=== PATIENT | male | born 1940 | race Caucasian/White ===

== ENCOUNTER 2021-07-18 00:25 | Emergency (ER) | payer OTHER ==
[~2021-07-18] VITALS: Ht 172.7 cm; Wt 81.6 kg
[~2021-07-18 00:25] MED LIST: AMLO-489 PO; ASPI325T4 PO; CHOL1TAB42 PO; FENO134C PO; MULT-576 PO; OMEG120017 PO
[2021-07-18] MEDS ORDERED: MORPHINE SULFATE INJECTION 2 MG/ML SYRG IV ONE (01:30)
[2021-07-18] MEDS ORDERED: ONDANSETRON HCL 4 MG/2 ML VIAL IV ONE (01:30)
[2021-07-18 03:56] LABS: BUN/Creatinine Ratio 15.6; Basophils # (auto) 0 10 ^3/uL (0-0.2); Basophils % (auto) 0.4 % (0.0-2.0); Calcium 8.3 mg/dL (8.5-10.1); Eosinophils # (auto) 0.1 10 ^3/uL (0-0.8); Eosinophils % (auto) 0.5 % (0.0-7.0); Hematocrit 46.3 % (41.0-53.0); Hemoglobin 15.7 g/dL (13.5-17.5); Lymphocytes % (auto) 9.6 % (10.0-50.0); Mean Corpuscular Hemoglobin 30.8 pg (28.0-32.0); Mean Corpuscular Volume 90.6 fL (80.0-100.0); Monocytes # (auto) 0.8 10 ^3/uL (0-1.3); Monocytes % (auto) 7.5 % (0.0-12.0); Neutrophils # (auto) 8.4 10 ^3/uL (1.6-8.6); Potassium 3.6 mmol/L (3.5-5.1); Red Blood Cells 5.11 10^6/uL (4.5-5.90); Red Cell Distribution Width 14.9 % (11.8-14.3); White Blood Cell 10.2 10^3/uL (4.4-10.8)
[2021-07-18 03:57] LABS: Urine Bacteria FEW /hpf (None Seen); Urine Blood 3+ /uL (Negative); Urine Mucus FEW (None Seen); Urine Specific Gravity 1.018 (1.001-1.035); Urine WBC 16 /hpf (0 - 3); Urine WBC Clumps PRESENT /hpf (None Seen)
[2021-07-18 06:00] VITALS: BP 141/75
[2021-07-18] MEDS ORDERED: LEVO-28 PO (06:51)
== END 2021-07-18 07:05 | disposition home or self-care (01) ==
LOC: ER 00:25
DX: R31.9 Hematuria, unspecified (principal); N99.89 Other postprocedural complications and disorders of genitourinary system; E78.5 Hyperlipidemia, unspecified; I10 Essential (primary) hypertension; Z20.822 Contact with and (suspected) exposure to COVID-19
CPT/HCPCS: 36415; 51702; 80048; 81001; 85025; 87086; 87426; 96374; 96375; 99284; J2270; J2405

== ENCOUNTER 2021-07-18 23:05 | Emergency (ER) | payer OTHER ==
[~2021-07-18] VITALS: Ht 172.7 cm; Wt 81.6 kg
[~2021-07-18 23:05] MED LIST changes: +LEVO-28 PO
[2021-07-19 05:40] LABS: Urine Bacteria NONE SEEN /hpf (None Seen); Urine Blood 3+ /uL (Negative); Urine Mucus FEW (None Seen); Urine WBC 15 /hpf (0 - 3)
[2021-07-19 07:06] LABS: Basophils % (auto) 0.5 % (0.0-2.0); Eosinophils % (auto) 1.4 % (0.0-7.0); Lymphocytes # (auto) 1.1 10 ^3/uL (0.4-5.4); Lymphocytes % (auto) 14.3 % (10.0-50.0); Monocytes % (auto) 9.7 % (0.0-12.0); Neutrophils # (auto) 5.5 10 ^3/uL (1.6-8.6); Neutrophils % (auto) 74.1 % (37.0-80.0); White Blood Cell 7.4 10^3/uL (4.4-10.8)
[2021-07-19 07:07] LABS: Basophils # (auto) 0 10 ^3/uL (0-0.2); Eosinophils # (auto) 0.1 10 ^3/uL (0-0.8); Hematocrit 39.6 % (41.0-53.0); Hemoglobin 13.5 g/dL (13.5-17.5); Mean Corpuscular Hemoglobin 30.4 pg (28.0-32.0); Mean Corpuscular Volume 89.3 fL (80.0-100.0); Monocytes # (auto) 0.7 10 ^3/uL (0-1.3); Red Blood Cells 4.43 10^6/uL (4.5-5.90)
[2021-07-19] MEDS ORDERED: SODIUM CHLORIDE 0.9% 1,000 ML IV ONE (07:15)
[2021-07-19 07:20] LABS: Calcium 8.6 mg/dL (8.5-10.1); Magnesium 2.4 mg/dL (1.6-2.6); Potassium 3.9 mmol/L (3.5-5.1)
[2021-07-19 07:24] LABS: Bilirubin, Total 0.5 mg/dL (0.2-1.0); Total Protein 6.6 g/dL (6.4-8.2)
[2021-07-19] MEDS ORDERED: cefTRIAXone 1GM/50ML D5W 50 ML IV ONE (07:30)
[2021-07-19 11:39] VITALS: BP 122/66
== END 2021-07-19 12:12 | disposition still patient (30) ==
LOC: ER 23:05
DX: R33.8 Other retention of urine (principal); R31.9 Hematuria, unspecified; I10 Essential (primary) hypertension; Z79.82 Long term (current) use of aspirin; Z79.2 Long term (current) use of antibiotics; Z79.899 Other long term (current) drug therapy
CPT/HCPCS: 36415; 80053; 81001; 83735; 84484; 85025; 96365; 99285; J0696; J7030

== ENCOUNTER 2022-09-22 15:55 | Inpatient (IN) | payer OTHER ==
[~2022-09-22] VITALS: Ht 170.2 cm; Wt 81.0 kg
[2022-09-22 16:52] LABS: Basophils # (auto) 0 10 ^3/uL (0-0.2); Basophils % (auto) 0.4 % (0.0-2.0); Eosinophils # (auto) 0 10 ^3/uL (0-0.8); Eosinophils % (auto) 0.4 % (0.0-7.0); Hematocrit 46.9 % (41.0-53.0); Hemoglobin 15.9 g/dL (13.5-17.5); Lymphocytes # (auto) 0.9 10 ^3/uL (0.4-5.4); Lymphocytes % (auto) 8.5 % (10.0-50.0); Mean Corpuscular Hemoglobin 32.3 pg (28.0-32.0); Mean Corpuscular Hgb Conc. 33.9 g/dL (32.0-36.0); Mean Corpuscular Volume 95.1 fL (80.0-100.0); Monocytes # (auto) 0.6 10 ^3/uL (0-1.3); Monocytes % (auto) 5.6 % (0.0-12.0); Neutrophils # (auto) 9.1 10 ^3/uL (1.6-8.6); Neutrophils % (auto) 85.1 % (37.0-80.0); Red Blood Cells 4.93 10^6/uL (4.5-5.90); Red Cell Distribution Width 14.5 % (11.8-14.3); White Blood Cell 10.7 10^3/uL (4.4-10.8)
[2022-09-22 17:01] LABS: Albumin 4.2 g/dL (3.4-5.0); BUN/Creatinine Ratio 15.7; Calcium 9.8 mg/dL (8.5-10.1)
[2022-09-22 17:04] LABS: Bilirubin, Total 0.9 mg/dL (0.2-1.0); Total Protein 7.5 g/dL (6.4-8.2)
[2022-09-22] MEDS ORDERED: ONDANSETRON HCL 4 MG/2 ML VIAL IV ONE (19:15)
[2022-09-22] MEDS ORDERED: MORPHINE SULFATE INJ 2 MG/ml SYRG IV PRN (20:45)
[2022-09-22] MEDS ORDERED: NITROGLYCERIN 0.4 MG SL TAB SL PRN (20:45)
[2022-09-22] MEDS: SODIUM CHLORIDE 0.9% 1,000 ML IV SCH (21:15)
[2022-09-23] MEDS: ONDANSETRON HCL 4 MG/2 ML VIAL IV PRN ×5 (00:51→23:07)
[2022-09-23] MEDS: MORPHINE SULFATE INJ 2 MG/ml SYRG IV PRN ×5 (00:53→23:07)
[2022-09-23 04:56] LABS: Basophils # (auto) 0.1 10 ^3/uL (0-0.2); Basophils % (auto) 0.5 % (0.0-2.0); Eosinophils # (auto) 0 10 ^3/uL (0-0.8); Eosinophils % (auto) 0.1 % (0.0-7.0); Hematocrit 48.5 % (41.0-53.0); Lymphocytes # (auto) 0.5 10 ^3/uL (0.4-5.4); Lymphocytes % (auto) 4.8 % (10.0-50.0); Mean Corpuscular Hemoglobin 31.4 pg (28.0-32.0); Mean Corpuscular Volume 95.3 fL (80.0-100.0); Monocytes # (auto) 0.5 10 ^3/uL (0-1.3); Monocytes % (auto) 4.2 % (0.0-12.0); Neutrophils # (auto) 9.7 10 ^3/uL (1.6-8.6); Neutrophils % (auto) 90.4 % (37.0-80.0); Red Blood Cells 5.09 10^6/uL (4.5-5.90); Red Cell Distribution Width 14.7 % (11.8-14.3); White Blood Cell 10.8 10^3/uL (4.4-10.8)
[2022-09-23] MEDS: SODIUM CHLORIDE 0.9% 1,000 ML IV SCH (05:09)
[2022-09-23 05:16] LABS: BUN/Creatinine Ratio 14.3; Calcium 9.8 mg/dL (8.5-10.1); Potassium 4.5 mmol/L (3.5-5.1)
[2022-09-23 08:23] LABS: Urine Bacteria NONE SEEN /hpf (None Seen); Urine Blood Negative /uL (Negative); Urine Mucus FEW (None Seen); Urine Specific Gravity 1.026 (1.001-1.035); Urine WBC 1 /hpf (0 - 3)
[2022-09-23] MEDS: ENOXAPARIN SOD 40 MG/0.4 ML SYRINGE SC SCH (11:30)
[2022-09-23] MEDS: D5W/SOD CHL 0.45%/KCL 20MEQ 1,000 ML IV SCH ×2 (11:46→23:10)
[2022-09-23] MEDS ORDERED: GASTROGRAFIN 120 ML SOL ONE (15:30)
[2022-09-23] MEDS ORDERED: MORPHINE SULFATE INJ 2 MG/ml SYRG IV ONE (18:45)
[2022-09-24] MEDS: MORPHINE SULFATE INJ 2 MG/ml SYRG IV PRN ×3 (03:53→20:59)
[2022-09-24] MEDS: ONDANSETRON HCL 4 MG/2 ML VIAL IV PRN ×2 (03:53→20:59)
[2022-09-24 05:00] VITALS: BP 147/86
[2022-09-24 06:03] LABS: Basophils # (auto) 0 10 ^3/uL (0-0.2); Basophils % (auto) 0.1 % (0.0-2.0); Eosinophils # (auto) 0 10 ^3/uL (0-0.8); Eosinophils % (auto) 0.1 % (0.0-7.0); Hematocrit 50.7 % (41.0-53.0); Hemoglobin 16.7 g/dL (13.5-17.5); Lymphocytes # (auto) 0.6 10 ^3/uL (0.4-5.4); Lymphocytes % (auto) 5.5 % (10.0-50.0); Mean Corpuscular Hemoglobin 31.3 pg (28.0-32.0); Mean Corpuscular Volume 94.9 fL (80.0-100.0); Monocytes # (auto) 1.1 10 ^3/uL (0-1.3); Monocytes % (auto) 9.9 % (0.0-12.0); Neutrophils # (auto) 9.2 10 ^3/uL (1.6-8.6); Neutrophils % (auto) 84.4 % (37.0-80.0); Red Blood Cells 5.34 10^6/uL (4.5-5.90); Red Cell Distribution Width 14.8 % (11.8-14.3); White Blood Cell 10.8 10^3/uL (4.4-10.8)
[2022-09-24 06:38] LABS: BUN/Creatinine Ratio 15.9; Calcium 10.1 mg/dL (8.5-10.1)
[2022-09-24 06:40] LABS: Bilirubin, Total 1.1 mg/dL (0.2-1.0); Total Protein 7.5 g/dL (6.4-8.2)
[2022-09-24 06:41] LABS: Potassium 4.9 mmol/L (3.5-5.1)
[2022-09-24 08:55] VITALS: BP 160/100
[2022-09-24] MEDS: ENOXAPARIN SOD 40 MG/0.4 ML SYRINGE SC SCH ×2 (10:04→10:13)
[2022-09-24] MEDS: D5W/SOD CHL 0.45%/KCL 20MEQ 1,000 ML IV SCH ×2 (10:11→20:06)
[2022-09-24] MEDS: hydrALAZINE HCL 20 MG/ML VL IV PRN (10:26)
[2022-09-24 13:19] VITALS: BP 141/92
[2022-09-24 17:21] VITALS: BP 138/90
[2022-09-24 22:00] VITALS: BP 121/74
[2022-09-25] MEDS: MORPHINE SULFATE INJ 2 MG/ml SYRG IV PRN ×4 (01:25→18:22)
[2022-09-25] MEDS: ONDANSETRON HCL 4 MG/2 ML VIAL IV PRN (01:25)
[2022-09-25 05:00] VITALS: BP 177/106
[2022-09-25] MEDS: hydrALAZINE HCL 20 MG/ML VL IV PRN (05:20)
[2022-09-25] MEDS: D5W/SOD CHL 0.45%/KCL 20MEQ 1,000 ML IV SCH ×2 (05:51→12:02)
[2022-09-25 07:34] LABS: Hemoglobin 16.5 g/dL (13.5-17.5); Mean Corpuscular Hemoglobin 31.4 pg (28.0-32.0); Mean Corpuscular Hgb Conc. 32.4 g/dL (32.0-36.0); Mean Corpuscular Volume 97.1 fL (80.0-100.0); Red Blood Cells 5.25 10^6/uL (4.5-5.90); Red Cell Distribution Width 14.7 % (11.8-14.3)
[2022-09-25 07:50] LABS: Basophils % (manual) 0 (0.0-2.0); Blast Cells 0; Eosinophils % (manual) 0 (0-7); Metamyelocytes % 0; Myelocytes % 0; Promyelocytes % 0; Reactive Lymphocytes 0
[2022-09-25 09:00] VITALS: BP 138/87
[2022-09-25] MEDS: ENOXAPARIN SOD 40 MG/0.4 ML SYRINGE SC SCH (09:25)
[2022-09-25 09:35] LABS: Band Neutrophils % (manual) 53; Lymphocytes % (manual) 12 (10.0-50.0); Monocytes % (manual) 15 (0-12)
[2022-09-25 13:00] VITALS: BP 145/94
[2022-09-25 17:00] VITALS: BP 150/100
[2022-09-25 22:12] VITALS: BP 149/93
[2022-09-26] MEDS: ONDANSETRON HCL 4 MG/2 ML VIAL IV PRN ×4 (00:12→20:15)
[2022-09-26] MEDS: MORPHINE SULFATE INJ 2 MG/ml SYRG IV PRN ×4 (00:13→20:15)
[2022-09-26] MEDS: D5W/SOD CHL 0.45%/KCL 20MEQ 1,000 ML IV SCH ×3 (03:47→20:16)
[2022-09-26 05:14] VITALS: BP 156/94
[2022-09-26 08:24] LABS: Hematocrit 45.4 % (41.0-53.0); Hemoglobin 15.4 g/dL (13.5-17.5); Mean Corpuscular Hemoglobin 32.2 pg (28.0-32.0); Mean Corpuscular Volume 94.9 fL (80.0-100.0); Red Blood Cells 4.78 10^6/uL (4.5-5.90); Red Cell Distribution Width 14.8 % (11.8-14.3); White Blood Cell 3.9 10^3/uL (4.4-10.8)
[2022-09-26] MEDS: ENOXAPARIN SOD 40 MG/0.4 ML SYRINGE SC SCH (08:28)
[2022-09-26 08:40] LABS: Basophils % (manual) 0 (0.0-2.0); Blast Cells 0; Eosinophils % (manual) 0 (0-7); Metamyelocytes % 0; Promyelocytes % 0; Reactive Lymphocytes 0
[2022-09-26 09:03] VITALS: BP 158/97
[2022-09-26 09:26] LABS: Band Neutrophils % (manual) 39; Lymphocytes % (manual) 27 (10.0-50.0); Monocytes % (manual) 18 (0-12); Myelocytes % 1
[2022-09-26 13:04] VITALS: BP 152/91
[2022-09-26 17:00] VITALS: BP 158/95
[2022-09-26 22:00] VITALS: BP 137/86
[2022-09-27 04:30] VITALS: BP 157/93
[2022-09-27] MEDS: MORPHINE SULFATE INJ 2 MG/ml SYRG IV PRN ×3 (06:42→21:10)
[2022-09-27] MEDS: ONDANSETRON HCL 4 MG/2 ML VIAL IV PRN ×2 (06:42→21:10)
[2022-09-27 07:01] LABS: Hematocrit 44.3 % (41.0-53.0); Hemoglobin 14.9 g/dL (13.5-17.5); Mean Corpuscular Hemoglobin 31.9 pg (28.0-32.0); Mean Corpuscular Hgb Conc. 33.6 g/dL (32.0-36.0); Mean Corpuscular Volume 94.9 fL (80.0-100.0); Red Blood Cells 4.67 10^6/uL (4.5-5.90); Red Cell Distribution Width 14.4 % (11.8-14.3)
[2022-09-27 07:05] LABS: Basophils % (manual) 0 (0.0-2.0); Blast Cells 0; Metamyelocytes % 0; Promyelocytes % 0; Reactive Lymphocytes 0
[2022-09-27] MEDS: D5W/SOD CHL 0.45%/KCL 20MEQ 1,000 ML IV SCH ×2 (07:08→15:58)
[2022-09-27] MEDS: ENOXAPARIN SOD 40 MG/0.4 ML SYRINGE SC SCH (07:55)
[2022-09-27] MEDS ORDERED: THROAT LOZENGES(CEPASTAT) MT PRN (08:15)
[2022-09-27 09:00] VITALS: BP 164/96
[2022-09-27] MEDS: hydrALAZINE HCL 20 MG/ML VL IV PRN (09:15)
[2022-09-27 09:17] LABS: Band Neutrophils % (manual) 37; Eosinophils % (manual) 2 (0-7); Lymphocytes % (manual) 21 (10.0-50.0); Monocytes % (manual) 16 (0-12); Myelocytes % 1
[2022-09-27 13:00] VITALS: BP 123/90
[2022-09-27 16:38] VITALS: BP 129/88
[2022-09-27 20:00] VITALS: BP 118/73
[2022-09-28] VITALS: BP 120/63
[2022-09-28] MEDS: MORPHINE SULFATE INJ 2 MG/ml SYRG IV PRN (02:24)
[2022-09-28] MEDS: ONDANSETRON HCL 4 MG/2 ML VIAL IV PRN ×2 (02:24→21:59)
[2022-09-28] MEDS: D5W/SOD CHL 0.45%/KCL 20MEQ 1,000 ML IV SCH ×3 (02:25→18:13)
[2022-09-28 08:47] VITALS: BP 157/98
[2022-09-28] MEDS: HYDROmorphone HCL 2 MG/ML VL/or syr IV PRN ×3 (10:15→21:59)
[2022-09-28] MEDS: ENOXAPARIN SOD 40 MG/0.4 ML SYRINGE SC SCH (10:26)
[2022-09-28 13:00] VITALS: BP 125/89
[2022-09-28 16:37] VITALS: BP 123/73
[2022-09-28 23:57] VITALS: BP 140/95
[2022-09-29] MEDS: ONDANSETRON HCL 4 MG/2 ML VIAL IV PRN (03:39)
[2022-09-29] MEDS: HYDROmorphone HCL 2 MG/ML VL/or syr IV PRN ×3 (03:40→22:10)
[2022-09-29 06:00] VITALS: BP 117/89
[2022-09-29] MEDS: D5W/SOD CHL 0.45%/KCL 20MEQ 1,000 ML IV SCH ×2 (07:30→17:03)
[2022-09-29 09:00] VITALS: BP 125/81
[2022-09-29] MEDS: ENOXAPARIN SOD 40 MG/0.4 ML SYRINGE SC SCH (10:17)
[2022-09-29 13:00] VITALS: BP 101/66
[2022-09-29 17:00] VITALS: BP 159/98
[2022-09-29 22:00] VITALS: BP 118/85
[2022-09-29] MEDS ORDERED: TPN PER PHARMACY 0 ML IV SCH (23:45)
[2022-09-30] MEDS: D5W/SOD CHL 0.45%/KCL 20MEQ 1,000 ML IV SCH ×3 (02:58→23:30)
[2022-09-30 05:00] VITALS: BP 136/79
[2022-09-30] MEDS: HYDROmorphone HCL 2 MG/ML VL/or syr IV PRN ×2 (06:12→17:56)
[2022-09-30 09:00] VITALS: BP 123/80
[2022-09-30 09:36] LABS: Basophils # (auto) 0 10 ^3/uL (0-0.2); Basophils % (auto) 0.3 % (0.0-2.0); Eosinophils # (auto) 0 10 ^3/uL (0-0.8); Eosinophils % (auto) 0.3 % (0.0-7.0); Hematocrit 47.3 % (41.0-53.0); Hemoglobin 16.4 g/dL (13.5-17.5); Lymphocytes # (auto) 0.9 10 ^3/uL (0.4-5.4); Lymphocytes % (auto) 11.8 % (10.0-50.0); Mean Corpuscular Hemoglobin 32.4 pg (28.0-32.0); Mean Corpuscular Hgb Conc. 34.6 g/dL (32.0-36.0); Mean Corpuscular Volume 93.5 fL (80.0-100.0); Monocytes # (auto) 1.2 10 ^3/uL (0-1.3); Monocytes % (auto) 16.2 % (0.0-12.0); Neutrophils # (auto) 5.4 10 ^3/uL (1.6-8.6); Neutrophils % (auto) 71.4 % (37.0-80.0); Nucleated Red Blood Cells % 0.2 %; Red Blood Cells 5.05 10^6/uL (4.5-5.90); Red Cell Distribution Width 14.1 % (11.8-14.3); White Blood Cell 7.5 10^3/uL (4.4-10.8)
[2022-09-30 09:53] LABS: Albumin 3.6 g/dL (3.4-5.0); Calcium 9.2 mg/dL (8.5-10.1); Magnesium 2.2 mg/dL (1.6-2.6); Potassium 3.9 mmol/L (3.5-5.1)
[2022-09-30 09:56] LABS: BUN/Creatinine Ratio 14.1; Phosphorus 3.8 mg/dL (2.5-4.90); Total Protein 7.5 g/dL (6.4-8.2)
[2022-09-30 10:02] LABS: INR 1.04 (0.9-1.15); Partial Thromboplastin Time 29.9 sec (24.6-33.4)
[2022-09-30 13:00] VITALS: BP 134/85
[2022-09-30] MEDS ORDERED: LIDOCAINE 1% (LOCAL ANESTH.) PF 5ml SDV ID ONE (13:00)
[2022-09-30] MEDS: ENOXAPARIN SOD 40 MG/0.4 ML SYRINGE SC SCH (13:11)
[2022-09-30 17:00] VITALS: BP 129/82
[2022-09-30] MEDS ORDERED: TPN PER PHARMACY IV NR ×9 (20:00)
[2022-09-30 22:00] VITALS: BP 117/82
[2022-09-30] MEDS: SODIUM CHLOR 0.9% PF (SALINE LOCK) 10ML VIAL/SYR IV SCH (23:45)
[2022-09-30] MEDS: InsuLIN REG 1unit/0.01ml Soln (100units/ml) SC SCH (23:57)
[2022-09-30] MEDS: ACCU-CHEK COMFORT CURVE STRIP VI SCH (23:58)
[2022-10-01] MEDS ORDERED: DEXTROSE (50%) 50ML SYRG IV SCH
[2022-10-01] MEDS: D5W/SOD CHL 0.45%/KCL 20MEQ 1,000 ML IV SCH (04:41)
[2022-10-01 05:00] VITALS: BP 131/78
[2022-10-01] MEDS: ACCU-CHEK COMFORT CURVE STRIP VI SCH ×3 (06:02→17:40)
[2022-10-01] MEDS: InsuLIN REG 1unit/0.01ml Soln (100units/ml) SC SCH ×3 (06:02→17:40)
[2022-10-01 06:59] LABS: Albumin 3.2 g/dL (3.4-5.0); Calcium 8.4 mg/dL (8.5-10.1); Potassium 3.8 mmol/L (3.5-5.1)
[2022-10-01 07:05] LABS: BUN/Creatinine Ratio 14.4; Bilirubin, Total 1.1 mg/dL (0.2-1.0); Magnesium 2.3 mg/dL (1.6-2.6); Total Protein 6.2 g/dL (6.4-8.2)
[2022-10-01 09:00] VITALS: BP 131/84
[2022-10-01] MEDS: SODIUM CHLOR 0.9% PF (SALINE LOCK) 10ML VIAL/SYR IV SCH ×2 (10:14→22:59)
[2022-10-01 13:00] VITALS: BP 124/83
[2022-10-01] MEDS: ENOXAPARIN SOD 40 MG/0.4 ML SYRINGE SC SCH (14:49)
[2022-10-01] MEDS: SOD CHL 0.9%/ KCL 20MEQ 1,000 ML IV SCH ×2 (15:55→19:50)
[2022-10-01 17:00] VITALS: BP 131/82
[2022-10-01] MEDS ORDERED: TPN PER PHARMACY IV NR ×10 (20:00)
[2022-10-01 22:00] VITALS: BP 128/77
[2022-10-02] MEDS: ACCU-CHEK COMFORT CURVE STRIP VI SCH ×3 (00:29→13:14)
[2022-10-02] MEDS: InsuLIN REG 1unit/0.01ml Soln (100units/ml) SC SCH ×3 (00:30→12:00)
[2022-10-02] MEDS: SOD CHL 0.9%/ KCL 20MEQ 1,000 ML IV SCH (04:16)
[2022-10-02 05:00] VITALS: BP 129/77
[2022-10-02 07:30] LABS: Albumin 3.2 g/dL (3.4-5.0); Calcium 8.2 mg/dL (8.5-10.1); Magnesium 2.4 mg/dL (1.6-2.6)
[2022-10-02 07:35] LABS: BUN/Creatinine Ratio 16.1; Phosphorus 2.9 mg/dL (2.5-4.90); Total Protein 6.3 g/dL (6.4-8.2)
[2022-10-02 07:39] LABS: Potassium 2.9 mmol/L (3.5-5.1)
[2022-10-02 09:37] VITALS: BP 130/75
[2022-10-02] MEDS: SODIUM CHLOR 0.9% PF (SALINE LOCK) 10ML VIAL/SYR IV SCH (09:50)
[2022-10-02] MEDS: ENOXAPARIN SOD 40 MG/0.4 ML SYRINGE SC SCH (10:17)
[2022-10-02] MEDS: POTASSIUM CHL 20MEQ/100ML 100 ML IV SCH ×2 (12:22→16:48)
[2022-10-02 14:27] VITALS: BP 134/84
[2022-10-02] MEDS: ONDANSETRON HCL 4 MG/2 ML VIAL IV PRN (14:57)
[2022-10-02 17:34] VITALS: BP 134/87
[2022-10-02] MEDS ORDERED: TPN PER PHARMACY IV NR ×10 (20:00)
== END 2022-10-02 18:02 | disposition short-term general hospital (02) | DRG 394 ==
LOC: ER 15:55 → EDBD 15:55 → OVERFLOW 20:36 → WEST WING 09-23 20:47 → OBSVTOIN 09-24 11:44
PROVIDERS: ADMIT Hospitalist; ATTEND Internal Medicine
PROC: 0D9670Z Drainage of Stomach with Drainage Device, Via Natural or Artificial Opening (ICD-10-PCS; principal; 2022-09-23)
DX: K94.13 Enterostomy malfunction (principal); E87.1 Hypo-osmolality and hyponatremia; K56.609 Unspecified intestinal obstruction, unspecified as to partial versus complete obstruction; N17.9 Acute kidney failure, unspecified; E78.5 Hyperlipidemia, unspecified; G47.33 Obstructive sleep apnea (adult) (pediatric); E11.22 Type 2 diabetes mellitus with diabetic chronic kidney disease; E86.0 Dehydration; I12.9 Hypertensive chronic kidney disease with stage 1 through stage 4 chronic kidney disease, or unspecified chronic kidney disease; N18.30 Chronic kidney disease, stage 3 unspecified; Z20.822 Contact with and (suspected) exposure to COVID-19; Z82.49 Family history of ischemic heart disease and other diseases of the circulatory system; Z80.3 Family history of malignant neoplasm of breast
CPT/HCPCS: 36415; 36569; 71045; 74018; 74176; 74250; 76775; 80048; 80053; 81001; 82306; 82570; 82962; 83605; 83690; 83735; 83970; 84100; 84156; 84300; 84478; 84484; 85007; 85025; 85027; 85610; 85730; 87081; 87426; 93005; 96374; G0378; J1815; J2405; J3480; J7131

== ENCOUNTER 2025-02-25 10:38 | Emergency (ER) | payer OTHER ==
[~2025-02-25] VITALS: Ht 172.7 cm; Wt 81.8 kg
[~2025-02-25 10:38] MED LIST changes: -AMLO-489 PO; +AMLO1TAB22 PO; -ASPI325T4 PO; +ASPI325T6 PO; -FENO134C PO; +FENO134C19 PO; -LEVO-28 PO; +LEVO500T91 PO
--- NOTE | 2025-02-25 11:00 | ECG ---
[facility] Test Date: 2025-02-25 Test Time: 10:57:27 Pat Name: SARAH MAK Department: ED Room: Gender: M Metal Flow Coordinator: MR CORTES: 1940 Requested By: EMELINA RIVAS Order Number: [id number] Reading MD: Maurizio Nayak Measurements Intervals [place] Rate: 55 P: 44 DE: 185 QRS: -68 QRSD: 158 T: 4 QT: 477 QTc: 457 Interpretive Statements Sinus rhythm Atrial premature complex RBBB and LAFB Electronically Signed On 02-27-2025 22:46:16 PDT by Maurizio Nayak Please click the below link to view image of tracing.
--- NOTE | 2025-02-25 11:04 | ED.PDOC ---
HPI (NEURO) HPI Comments 84 year old male presents to the ED via EMS with a chief complaint of syncope onset today (02/25/25). Per [facility], [facility], experienced syncope episode, according to witnesses patient was shaking. Patient states he was feeling weak, lightheaded states he did not pass out, does not recall shaking. Per EMS, upon their arrival, patient was bradycardiac with HR 52-58, BP 170 systolic. PMHx HTN, HLD. Denies chest pain, shortness of breath, nausea, vomiting, diarrhea, fevers, chills, dysuria, hematuria. No other symptoms or modifying factors present at this time. Chief Complaint: Syncope Time Seen by MD: 10:45 Primary Care Provider: IVONNE Reviewed Notes: Medications, Allergies Information Source: Patient, Emergency Med Personnel, Spouse Mode of Arrival: EMS Severity: Moderate Duration: Since onset Prehospital treatment: None Onset: At rest Circumstances: Spontaneous Symptoms: Syncope Past Medical History PAST MEDICAL HISTORY: High Lipids, HTN Surgical History: Hernia Repair, Tonsillectomy Family History Family History: No family hx of Heart sandy Social History Smoker: Non-Smoker Alcohol: Rarely Drugs: Denies Drug Use Lives In: Home Constitutional: reports: weakness; denies: chills, diaphoresis, fatigue, fever, malaise, sweats, others EENTM: denies: blurred vision, double vision, ear bleeding, ear discharge, ear drainage, ear pain, ear ringing, eye pain, eye redness, hearing loss, mouth pain, mouth swelling, nasal discharge, nose bleeding, nose congestion, nose pain, photophobia, tearing, throat pain, throat swelling, voice changes, others Respiratory: denies: cough, hemoptysis, orthopnea, SOB at rest, shortness of breath, SOB with excertion, stridor, wheezing, others Cardiovascular: denies: chest pain, dizzy spells, diaphoresis, Dyspnea on exertion, edema, irregular heart beat, left arm pain, lightheadedness, palpitations, PND, syncope, others Gastrointestinal: denies: abdomen distended, abdominal pain, blood streaked bowels, constipated, diarrhea, dysphagia, difficulty swallowing, hematemesis, melena, nausea, poor appetite, poor fluid intake, rectal bleeding, rectal pain, vomiting, others Genitourinary: denies: burning, dysuria, flank pain, frequency, hematuria, incontinence, penile discharge, penile sore, pain, testicle pain, testicle swelling, urgency, others Neurological: reports: weakness, others (syncope); denies: dizziness, fainting, headache, left sided numbness, left sided weakness, numbness, paresthesia, pre-existing deficit, right sided numbness, right sided weakness, seizure, speech problems, tingling, tremors Musculoskeletal: denies: back pain, gout, joint pain, joint swelling, muscle pain, muscle stiffness, neck pain, others Integumetry: denies: bruises, change in color, change in hair/nails, dryness, laceration, lesions, lumps, rash, wounds, others Allergic/Immunocompromised: denies: Difficulty Healing, Frequent Infections, Hives, Itching, others Hematologic/Lymphatic: denies: anemia, blood clots, easy bleeding, easy bruising, swollen glands, others Endocrine: denies: excessive hunger, excessive sweating, excessive thirst, excessive urination, flushing, intolerance to cold, intolerance to heat, unexplained weight gain, unexplained weight loss, others Psychiatric: denies: anxiety, bipolar disorder, depression, hopeless, panic disorder, schizophrenia, sleepless, suicidal, others All Other Systems: Reviewed and Negative Physical Exam General Appearance: Normal HEENT: Normal ENT Inspection, Pharynx Normal, TMs Normal Neck: Full Range of Motion, Non-Tender, Normal, Normal Inspection Respiratory: Chest Non-Tender, Lungs Clear, No Accessory Muscle Use, No Respiratory Distress, Normal Breath Sounds Cardiovascular: Bradycardia, No Edema, No JVD, No Murmur, No Gallop Breast Exam: Deferred Gastrointestinal: No Organomegaly, Non Tender, No Pulsatile Mass, Normal Bowel Sounds, Soft Genitalia: Deferred Pelvic: Deferred Rectal: Deferred Extremities: No calf tenderness, Normal capillary refill, Normal inspection, Normal range of motion, Non-tender, No pedal edema Musculoskeletal : Apperance: Normal Neurologic: Alert, chemical recovery operator II-XII nml as Tested, No Motor Deficits, Normal Affect, Normal Mood, No Sensory Deficits Cerebellar Function: Normal Reflexes: Normal Skin: Dry, Normal Color, Warm Lymphatic: No Adenopathy EKG EKG : Pulse Rate (adult): 55 Cardiac Rhythm: NSR Block: RBBB Was a procedure done? Was a procedure done?: No Differential Diagnosis (SZ) Seizure: CVA/TIA, Hypocalcemia, Hypoglycemia, Hyponatremia, Hypoxemia, Mass Lesion, Syncope, Epilepsy-Status CVA: CVA, Electrolyte Imbalance, Hypoglycemia, Hypoxemia, Mass Lesion, SAH, TIA General Weakness: Anemia, CVA, Dehydration, Dysrhythmia, Electrolyte imbalance, Hypoglycemia, Hypotension, Hypovolemia, Myocardial infarction Headache: N/A X-Ray, Labs, Meds, VS Vital Signs Date Time Temp Pulse Resp B/P (MAP) Pulse Ox O2 Delivery O2 Flow Rate FiO2 02/25/25 11:50 60 16 98 Room Air* 0 21 02/25/25 11:50 98.0 60 14 167/83 (111) 98 98.0 02/25/25 11:50 62 183/110 02/25/25 11:04 55 02/25/25 10:42 98.0 53 18 151/83 (105) 97 98.0 Lab Test 02/25/25 12:01 02/25/25 11:14 Range/Units Troponin I High Sensitivity Pending 3 L </=54 ng/L White Blood Count 7.8 4.4-10.8 10^3/uL Red Blood Count 4.94 4.5-5.90 10^6/uL Hemoglobin 16.2 13.5-17.5 g/dL Hematocrit 46.5 41.0-53.0 % Mean Corpuscular Volume 94.1 80.0-100.0 fL Mean Corpuscular Hemoglobin 32.9 H 28.0-32.0 pg Mean Corpuscular Hemoglobin Concent 34.9 32.0-36.0 g/dL Red Cell Distribution Width 14.8 H 11.8-14.3 % Platelet Count 176 140-450 10^3/uL Mean Platelet Volume 7.5 6.9-10.8 fL Neutrophils (%) (Auto) 83.3 H 37.0-80.0 % Lymphocytes (%) (Auto) 8.8 L 10.0-50.0 % Monocytes (%) (Auto) 6.7 0.0-12.0 % Eosinophils (%) (Auto) 0.8 0.0-7.0 % Basophils (%) (Auto) 0.4 0.0-2.0 % Neutrophils # (Auto) 6.5 1.6-8.6 10 ^3/uL Lymphocytes # (Auto) 0.7 0.4-5.4 10 ^3/uL Monocytes # (Auto) 0.5 0-1.3 10 ^3/uL Eosinophils # (Auto) 0.1 0-0.8 10 ^3/uL Basophils # (Auto) 0 0-0.2 10 ^3/uL Nucleated Red Blood Cells 0.0 % Sodium Level 139 136-145 mmol/L Potassium Level 3.9 3.5-5.1 mmol/L Chloride Level 102 98-107 mmol/L Carbon Dioxide Level 26 20-31 mmol/L Anion Gap 11 5-15 Blood Urea Nitrogen 14 9-23 mg/dL Creatinine 1.18 0.700-1.30 mg/dL Glomerular Filtration Rate Calc 62 >90 mL/min BUN/Creatinine Ratio 11.9 10.0-20.0 Serum Glucose 105 74-106 mg/dL Calcium Level 10.1 8.7-10.4 mg/dL [place] [id number] Ph: [phone] DIAGNOSTIC IMAGING Diagnostic Imaging Report : [id number] Signed PATIENT: SARAH MAK ACCT: [id number] UNIT: [id number] : 1940 LOC: ER ROOM / BED: / AGE / SEX: 84 / M ADM STATUS: REG ER SERVICE 1057 ORDERING PHYSICIAN: EMELINA RIVAS MD PROCEDURE(s): CXRP - CHEST PORTABLE REASON: syncope ORDER NUMBER(s): [id number], ACCESSION NUMBER(s): [id number] EXAM: XY CHEST PORTABLE CLINICAL HISTORY: syncope TECHNIQUE: Single AP view of the chest WID: COMPARISON: CHEST XRAY 1 VIEW on DOS: 10/01/22 FINDINGS: Lines and tubes: None Chest: Upper limits of normal-sized heart and calcified plaque projects over the aortic arch. No pulmonary vascular congestion. No pleural effusion or pneumothorax. Small mixed opacity in the medial right lung base. Linear areas of atelectasis or scarring in both lung bases. The osseous structures are grossly intact. Degenerative changes of the bilateral hips. IMPRESSION: 1. Small mixed opacity in the medial right lung base which could reflect atelectasis or pneumonia. 2. Additional bibasilar linear scarring or atelectasis. 3. Upper Limits of normal-sized heart. ATED BY: KAITY SHANE MD DICTATED DATE/TIME: 02/25/251123 SIGNED BY: KAITY SHANE MD SIGNED DATE/TIME: 02/25/251123 CC: [place] [id number] Ph: [phone] DIAGNOSTIC IMAGING Diagnostic Imaging Report : [id number] Signed PATIENT: SARAH MAK ACCT: [id number] UNIT: [id number] : 1940 LOC: ER ROOM / BED: / AGE / SEX: 84 / M ADM STATUS: REG ER SERVICE 1057 ORDERING PHYSICIAN: EMELINA RIVAS MD PROCEDURE(s): HWOCT - HEAD WITHOUT CONTRAST REASON: syncope, seizure ORDER NUMBER(s): [id number], ACCESSION NUMBER(s): [id number] CLINICAL HISTORY: syncope, seizure TECHNIQUE: Helical imaging carried out from skull base to vertex without intravenous contrast. This exam was performed according to our departmental dose optimization program. Up-to-date CT equipment and radiation dose reduction techniques are utilized as appropriate. CTDIVol: 59.03 mGy DLP: 1064.26 mGy-cm WID: COMPARISON: None FINDINGS: Mild cerebral volume loss with concordant prominence of the subarachnoid spaces and ventricles. Incidental bilateral basal ganglia calcifications. There is no midline shift or mass effect. The calles white matter interfaces are maintained. The basal cisterns are patent. There is no evidence of acute intracranial hemorrhage or extra-axial fluid collection. The mastoid air cells and visualized paranasal sinuses are well-aerated. Prior prior ocular lens replacement. IMPRESSION: No acute intracranial abnormality. ATED BY: KAITY SHANE MD DICTATED DATE/TIME: 02/25/25 113 SIGNED BY: KAITY SHANE MD SIGNED DATE/TIME: 02/25/25 113 CC: + Time of 1ST Reevaluation: 11:15 Reevaluation 1ST: Unchanged Time of 2ND Reevaluation: 12:46 Reevaluation 2ND: Resolved Patient Education/Counseling: Diagnosis, Treatment, Prognosis, Need For Follow Up Family Education/Counseling: Diagnosis, Treatment, Prognosis, Need For Follow Up Comments pt had an episode of syncope, with questionable seizure. the head ct is unremarkable. the seizure likely is due to hypotension. cardiac work up is unrem arkable. pt is not hypoglycemic, not hypoxic. he will be admitted for further evaluation, especially for arrhythmias Additional Information The following tests were ordered, and results were reviewed by me: EKG -X3, TROP-x3, BMP, CBC, XY CHEST, CT HEAD WO CONTRAST Additional Information was gathered from interviewing the following independent historians: EMS, I reviewed and agreed with the following test results read by other providers: , XY CHEST, CT HEAD WO CONTRAST I discussed treatment and results with medical personnel and: patient Comprehensive systems review obtained and negative except for what is stated in the HPI. Departure 1 Departure Time of Disposition: 12:48 Impression: Primary Impression: SYNCOPE AND COLLAPSE Additional Impression: Seizure disorder Disposition: ADMITTED INPATIENT Admit to: Tele Condition: Serious Discharged With: Self, Spouse Critical Care Note Critical Care Time?: Yes (55 min-critical care time only) Critical care comment: Due to concerns for patients condition deteriorating, the care required my highest level of attention and readiness to intervene. I assessed the patient, reviewed the medical records, ordered the appropriate tests and treatments, then reassessed for results and responsiveness. I communicated with medical personnel and consultants and formulated a plan of care. Total critical care time excludes any procedures Stability Stability form required: No I personally scribed for EMELINA RIVAS MD ([email or web address]) on 02/25/25 at 11:04. Electronically submitted by Seema Wolfe ([email or web address]). I personally scribed for EMELINA RIVAS MD ([email or web address]) on 02/25/25 at 11:28. Electronically submitted by Seema Wolfe ([email or web address]). I personally scribed for EMELINA RIVAS MD ([email or web address]) on 02/25/25 at 12:22. Electronically submitted by Seema Wolfe ([email or web address]). EMELINA RIVAS MD Feb 25, 2025 11:04
[2025-02-25 11:25] LABS: Basophils # (auto) 0 10 ^3/uL (0-0.2); Basophils % (auto) 0.4 % (0.0-2.0); Eosinophils # (auto) 0.1 10 ^3/uL (0-0.8); Eosinophils % (auto) 0.8 % (0.0-7.0); Hematocrit 46.5 % (41.0-53.0); Hemoglobin 16.2 g/dL (13.5-17.5); Lymphocytes # (auto) 0.7 10 ^3/uL (0.4-5.4); Lymphocytes % (auto) 8.8 % (10.0-50.0); Mean Corpuscular Hemoglobin 32.9 pg (28.0-32.0); Mean Corpuscular Hgb Conc. 34.9 g/dL (32.0-36.0); Mean Corpuscular Volume 94.1 fL (80.0-100.0); Monocytes # (auto) 0.5 10 ^3/uL (0-1.3); Monocytes % (auto) 6.7 % (0.0-12.0); Neutrophils # (auto) 6.5 10 ^3/uL (1.6-8.6); Neutrophils % (auto) 83.3 % (37.0-80.0); Platelet Count (auto) 176 10^3/uL (140-450); Red Blood Cells 4.94 10^6/uL (4.5-5.90); Red Cell Distribution Width 14.8 % (11.8-14.3); White Blood Cell 7.8 10^3/uL (4.4-10.8)
--- NOTE | 2025-02-25 11:26 | DVH ---
EXAM: XY CHEST PORTABLE CLINICAL HISTORY: syncope TECHNIQUE: Single AP view of the chest WID: COMPARISON: CHEST XRAY 1 VIEW on DOS: 10/01/22 FINDINGS: Lines and tubes: None Chest: Upper limits of normal-sized heart and calcified plaque projects over the aortic arch. No pulmonary v ascular congestion. No pleural effusion or pneumothorax. Small mixed opacity in the medial right lung base. Linear areas of atelectasis or scarring in both lung bases. The osseous structures are grossly intact. Degenerative changes of the bilateral hips. IMPRESSION: 1. Small mixed opacity in the medial right lung base which could reflect atelectasis or pneumonia. 2. Additional bibasilar linear scarring or atelectasis. 3. Upper Limits of normal-sized heart.
--- NOTE | 2025-02-25 11:34 | DVH ---
CLINICAL HISTORY: syncope, seizure TECHNIQUE: Helical imaging carried out from skull base to vertex without intravenous contrast. This e xam was performed according to our departmental dose optimization program. Up-to-date CT equipment an d radiation dose reduction techniques are utilized as appropriate. CTDIVol: 59.03 mGy DLP: 1064.26 mGy-cm WID: COMPARISON: None FINDINGS: Mild cerebral volume loss with concordant prominence of the subarachnoid spaces and ventricles. Incid ental bilateral basal ganglia calcifications. There is no midline shift or mass effect. The calles white matter interfaces are maintained. The basal cisterns are patent. There is no evidence of acute intracranial hemorrhage or extra-axial fluid myron ection. The mastoid air cells and visualized paranasal sinuses are well-aerated. Prior prior ocular l ens replacement. IMPRESSION: No acute intracranial abnormality.
[2025-02-25 11:35] LABS: Chloride 102 mmol/L (98-107); Potassium 3.9 mmol/L (3.5-5.1); Sodium 139 mmol/L (136-145)
[2025-02-25 11:36] LABS: Anion Gap 11 (5-15); Carbon Dioxide 26 mmol/L (20-31)
[2025-02-25 11:37] LABS: Calcium 10.1 mg/dL (8.7-10.4)
[2025-02-25 11:41] LABS: BUN/Creatinine Ratio 11.9 (10.0-20.0); Blood Urea Nitrogen 14 mg/dL (9-23); Glucose 105 mg/dL (74-106)
[2025-02-25 11:50] VITALS: PULSE 60; RESP 16; O2SAT 98
[2025-02-25] MEDS: hydrALAZINE HCL 20 MG/ML VL IV ONE (13:30)
[2025-02-25 19:50] VITALS: BP 118/70; PULSE 72; RESP 18; TEMP 98.2; O2SAT 95
== END 2025-02-25 20:48 | disposition home or self-care (01) ==
LOC: ER 10:38 → EDBD 10:38 → EDUNIT# 10:38 → ER 20:48
DX: G40.909 Epilepsy, unspecified, not intractable, without status epilepticus (principal); R55 Syncope and collapse; F10.90 Alcohol use, unspecified, uncomplicated; I10 Essential (primary) hypertension; E78.5 Hyperlipidemia, unspecified; Z98.890 Other specified postprocedural states; Z90.89 Acquired absence of other organs; Y90.9 Presence of alcohol in blood, level not specified
CPT/HCPCS: 36415; 70450; 71045; 80048; 84484; 85025; 93005; 99291